=== PATIENT | female | born 1930 | race Caucasian/White ===

== ENCOUNTER → 2017-10-16 | Outpatient (CLI) | payer MEDICARE, BC ==
[~2017-10-16] MED LIST: ACET-1757 PO; AMLO10TA2 PO; CIPR10DR RIGHT EAR; DIAZ2TAB PO; HEPA500024 SC; LIDO700A5 TD; METO5TAB2 PO; OMEP20CA14 PO; ONDA4SOL IV; ONDA4TAB10 PO; PENT100C2 PO; POTA20IV IV; SENN1TAB7 PO; TRAM50TA2 PO
== END | disposition home or self-care (01) ==
LOC: WOUND 12:56
PROVIDERS: ATTEND Family Medicine
DX: S41.101D Unspecified open wound of right upper arm, subsequent encounter (principal); I10 Essential (primary) hypertension; M19.90 Unspecified osteoarthritis, unspecified site; I25.2 Old myocardial infarction; F17.210 Nicotine dependence, cigarettes, uncomplicated; Z85.850 Personal history of malignant neoplasm of thyroid; Z85.828 Personal history of other malignant neoplasm of skin; Z90.710 Acquired absence of both cervix and uterus; X58.XXXD Exposure to other specified factors, subsequent encounter
CPT/HCPCS: 97597; 97598; G0463; WOU0463

== ENCOUNTER → 2017-10-26 | Outpatient (CLI) | payer MEDICARE, BC | END | disposition home or self-care (01) | LOC: WOUND 13:31 | PROVIDERS: ATTEND Internal Medicine | DX: S41.101D Unspecified open wound of right upper arm, subsequent encounter (principal); I10 Essential (primary) hypertension; M19.90 Unspecified osteoarthritis, unspecified site; I25.2 Old myocardial infarction; F17.210 Nicotine dependence, cigarettes, uncomplicated; Z85.41 Personal history of malignant neoplasm of cervix uteri; Z85.850 Personal history of malignant neoplasm of thyroid; Z90.710 Acquired absence of both cervix and uterus; Z96.611 Presence of right artificial shoulder joint; X58.XXXD Exposure to other specified factors, subsequent encounter | CPT/HCPCS: 97597 ==